=== PATIENT | male | born 1985 | race Caucasian/White ===

== ENCOUNTER 2016-08-17 18:44 | Emergency (ER) | payer MEDICAID ==
[~2016-08-17] VITALS: Ht 165.1 cm; Wt 71.4 kg
[2016-08-17] MEDS ORDERED: LORazepam 1 MG TABLET PO ONE (21:45)
[2016-08-17 22:00] VITALS: BP 134/64
== END 2016-08-17 22:25 | disposition home or self-care (01) ==
LOC: EMS 18:46
DX: F41.9 Anxiety disorder, unspecified (principal); R00.2 Palpitations; R20.2 Paresthesia of skin
CPT/HCPCS: 93005; 99285